=== PATIENT | female | born 1950 | race Caucasian/White ===

== ENCOUNTER 2016-05-18 14:33 | Outpatient (CLI) | payer OTHER ==
[2016-05-18 17:13] LABS: BASOPHILS # (AUTO) 0.1 K/uL (0-0.2); BASOPHILS % (AUTO) 0.7 % (0.0-3.0); EOSINOPHILS # (AUTO) 0.2 K/ul (0.0-0.7); EOSINOPHILS % (AUTO) 2.7 % (0.0-7.0); HEMATOCRIT 42.5 % (37.0-47.0); HEMOGLOBIN 14.2 g/dl (12.0-16.0); IMMATURE GRANULOCYTE % (AUTO) 0.3 % (0.0-5.0); LYMPHOCYTES # (AUTO) 2.3 K/uL (0.60-3.4); LYMPHOCYTES % (AUTO) 31.2 (10.0-50.0); MEAN CORPUSCULAR HEMOGLOBIN 33.9 pg (27.0-31.0); MEAN CORPUSCULAR HGB CONC 33.4 (31.8-35.4); MEAN CORPUSCULAR VOLUME 101.4 fl (81.0-99.0); MONOCYTES # (AUTO) 0.6 K/uL (0.4-2.0); MONOCYTES % (AUTO) 7.7 (0-10); NEUTROPHILS # (AUTO) 4.3 K/ul (2.0-6.9); NEUTROPHILS % (AUTO) 57.4; PLATELET COUNT 263 10^3/uL (140-440); RED BLOOD COUNT 4.19 10^6/ul (4.20-5.40)
[2016-05-18 17:51] LABS: ALBUMIN 3.7 g/dL (3.4-5.0); ALBUMIN/GLOBULIN RATIO 1.06; ANION GAP 18.4; BILIRUBIN,TOTAL 0.49 mg/dL (0.00-1.20); BUN/CREATININE RATIO 13.95; CALCIUM 9.2 mg/dL (8.2-10.2); CREATININE 0.86 mg/dL (0.60-1.30); POTASSIUM 4.4 mmol/L (3.5-5.10); TOTAL PROTEIN 7.2 g/dL (5.8-8.1)
== END 2016-05-18 14:34 | disposition home or self-care (01) ==
LOC: LAB 14:33
PROVIDERS: ATTEND General Practice
DX: E78.5 Hyperlipidemia, unspecified (principal); I10 Essential (primary) hypertension; E03.9 Hypothyroidism, unspecified; G47.33 Obstructive sleep apnea (adult) (pediatric); E53.9 Vitamin B deficiency, unspecified; R55 Syncope and collapse; F41.0 Panic disorder [episodic paroxysmal anxiety]; Z79.899 Other long term (current) drug therapy
CPT/HCPCS: 36415; 80053; 80061; 84443; 85025

== ENCOUNTER 2016-09-12 09:30 | Outpatient (CLI) | payer OTHER ==
[2016-09-12 09:56] LABS: BASOPHILS % (AUTO) 0.6 % (0.0-3.0); EOSINOPHILS # (AUTO) 0.2 K/ul (0.0-0.7); EOSINOPHILS % (AUTO) 2.5 % (0.0-7.0); HEMATOCRIT 40.2 % (37.0-47.0); HEMOGLOBIN 14.1 g/dl (12.0-16.0); IMMATURE GRANULOCYTE % (AUTO) 0.3 % (0.0-5.0); LYMPHOCYTES # (AUTO) 2.4 K/uL (0.60-3.4); MEAN CORPUSCULAR HEMOGLOBIN 33.7 pg (27.0-31.0); MEAN CORPUSCULAR HGB CONC 35.1 (31.8-35.4); MEAN CORPUSCULAR VOLUME 96.2 fl (81.0-99.0); MONOCYTES # (AUTO) 0.5 K/uL (0.4-2.0); MONOCYTES % (AUTO) 6.9 (0-10); NEUTROPHILS # (AUTO) 4.1 K/ul (2.0-6.9); NEUTROPHILS % (AUTO) 56.7; PLATELET COUNT 258 10^3/uL (140-440); RED BLOOD COUNT 4.18 10^6/ul (4.20-5.40); WHITE BLOOD COUNT 7.22 K/ul (4.6-10.2)
[2016-09-12 10:01] LABS: BILIRUBIN,URINE Negative (NEGATIVE); KETONES,URINE Negative (NEGATIVE); LEUKOCYTE ESTERASE ,URINE Negative (NEGATIVE); NITRITE,URINE Negative (NEGATIVE); PROTEIN,URINE Negative (NEGATIVE); URINE, BLOOD Negative (NEGATIVE)
[2016-09-12 10:10] LABS: ADD URINE MICROSCOPIC NO
[2016-09-12 10:14] LABS: ALBUMIN 3.6 g/dL (3.4-5.0); ALBUMIN/GLOBULIN RATIO 1.13; ANION GAP 10.9; BILIRUBIN,TOTAL 0.71 mg/dL (0.00-1.20); BUN/CREATININE RATIO 9.27; CALCIUM 9.1 mg/dL (8.2-10.2); CHOL/HDL RATIO 4.4 (4.5-5.5); CREATININE 0.97 mg/dL (0.60-1.30); POTASSIUM 3.9 mmol/L (3.5-5.10); TOTAL PROTEIN 6.8 g/dL (5.8-8.1)
--- NOTE | 2016-09-12 10:18 | CT ---
EXAM: CT of the chest without contrast History: Essential hypertension. Comparison: Chest CT 08/18/2015 Technique: Multiplanar CT images through the thorax were obtained without the administration of IV contrast Findings: Normal heart size. No pericardial effusion. The vessels are unremarkable. The pulmonar y arteries are not dilated. No pathologically enlarged thoracic lymph nodes. No consolidation. No pleural fluid and no pneumothorax. Stable 5 mm pleural based nodule within the right middle lobe. No developing lung nodules. A few small calcified granulomas again seen. Within the visualized upper abdomen, no acute findings. Colonic diverticulosis. No acute osseous ab normalities. Impression: 1. No acute intrathoracic process. 2. Colonic diverticulosis.
== END 2016-09-12 09:31 | disposition home or self-care (01) ==
LOC: RAD 09:30
PROVIDERS: ATTEND General Practice
DX: E78.5 Hyperlipidemia, unspecified (principal); I10 Essential (primary) hypertension; E03.9 Hypothyroidism, unspecified; R91.1 Solitary pulmonary nodule; Z79.899 Other long term (current) drug therapy
CPT/HCPCS: 36415; 80053; 80061; 81001; 85025

== ENCOUNTER 2016-09-30 20:08 | Outpatient (CLI) | END 2016-09-30 20:09 | disposition home or self-care (01) | LOC: AMBL 20:08 | PROVIDERS: ATTEND Internal Medicine Geriatric Medicine | DX: R55 Syncope and collapse (principal); R41.82 Altered mental status, unspecified; R53.1 Weakness; R40.2411 Glasgow coma scale score 13-15, in the field [EMT or ambulance]; R32 Unspecified urinary incontinence; I95.9 Hypotension, unspecified; R47.81 Slurred speech; H57.04 Mydriasis ==

== ENCOUNTER 2017-03-04 08:44 | Outpatient (CLI) ==
[2017-03-04 09:22] LABS: BASOPHILS # (AUTO) 0.1 K/uL (0-0.2); BASOPHILS % (AUTO) 0.6 % (0.0-3.0); EOSINOPHILS # (AUTO) 0.3 K/ul (0.0-0.7); HEMATOCRIT 40.9 % (37.0-47.0); IMMATURE GRANULOCYTE % (AUTO) 0.3 % (0.0-5.0); LYMPHOCYTES # (AUTO) 3.4 K/uL (0.60-3.4); LYMPHOCYTES % (AUTO) 37.4 (10.0-50.0); MEAN CORPUSCULAR HEMOGLOBIN 32.9 pg (27.0-31.0); MEAN CORPUSCULAR HGB CONC 34.2 (31.8-35.4); MONOCYTES # (AUTO) 0.7 K/uL (0.4-2.0); MONOCYTES % (AUTO) 7.3 (0-10); NEUTROPHILS # (AUTO) 4.6 K/ul (2.0-6.9); NEUTROPHILS % (AUTO) 51.4; PLATELET COUNT 272 10^3/uL (140-440); RED BLOOD COUNT 4.26 10^6/ul (4.20-5.40); WHITE BLOOD COUNT 8.95 K/ul (4.6-10.2)
[2017-03-04 09:32] LABS: BILIRUBIN,URINE Negative (NEGATIVE); KETONES,URINE Negative (NEGATIVE); LEUKOCYTE ESTERASE ,URINE Negative (NEGATIVE); NITRITE,URINE Negative (NEGATIVE); PROTEIN,URINE Negative (NEGATIVE); URINE, BLOOD Trace-intact (NEGATIVE)
[2017-03-04 09:38] LABS: ADD URINE MICROSCOPIC YES
[2017-03-04 09:44] LABS: ALBUMIN 3.5 g/dL (3.4-5.0); ALBUMIN/GLOBULIN RATIO 0.97; ANION GAP 10.5; BILIRUBIN,TOTAL 0.52 mg/dL (0.00-1.20); BUN/CREATININE RATIO 10.97; CALCIUM 9.6 mg/dL (8.2-10.2); CREATININE 0.82 mg/dL (0.60-1.30); POTASSIUM 4.5 mmol/L (3.5-5.10); TOTAL PROTEIN 7.1 g/dL (5.8-8.1)
== END 2017-03-04 08:45 | disposition home or self-care (01) ==
LOC: LAB 08:44
PROVIDERS: ATTEND General Practice
DX: E78.5 Hyperlipidemia, unspecified (principal); E03.9 Hypothyroidism, unspecified; I10 Essential (primary) hypertension; Z79.899 Other long term (current) drug therapy
CPT/HCPCS: 36415; 80053; 81001; 85025

== ENCOUNTER 2017-06-07 10:31 | Outpatient (CLI) | END 2017-06-07 10:32 | disposition home or self-care (01) | LOC: FCC-LAB 10:31 | PROVIDERS: ATTEND General Practice | DX: E78.5 Hyperlipidemia, unspecified (principal); I10 Essential (primary) hypertension; Z79.899 Other long term (current) drug therapy | CPT/HCPCS: 36415; 80053; 80061; 81001; 85025 ==

== ENCOUNTER 2017-06-19 11:04 | Outpatient (CLI) | END 2017-06-19 11:05 | disposition home or self-care (01) | LOC: RAD 11:04 | PROVIDERS: ATTEND General Practice | DX: Z12.31 Encounter for screening mammogram for malignant neoplasm of breast (principal) | CPT/HCPCS: 77067 ==

== ENCOUNTER 2017-09-11 16:13 | Outpatient (CLI) | payer OTHER ==
--- NOTE | 2017-09-11 17:00 | CT ---
EXAM: CT of the thoracic spine without contrast History: Thoracic back pain. Comparison: Chest CT 09/11 2017 Technique: Multiplanar CT images through the thoracic spine were obtained without the administration of IV contrast Findings: For details concerning the visualized thorax, please see dedicated chest CT done on the day. 6 mm hypoattenuating nodule within the right thyroid lobe. No acute fracture or subluxation of the thoracic spine. Mild to moderate disc space narrowing of the thoracic spine. A few prominent osteophytes. Partially visualized degenerative disc disease within the lower cervical spine which appears severe at C6-7. Bony spinal canal is not compromised. Impression: 1. No acute osseous abnormality of the thoracic spine. 2. Mild to moderate degenerative disc disease within the thoracic spine. 3. Severe degenerative disc disease within the lower cervical spine is partially visualized.
--- NOTE | 2017-09-11 17:03 | CT ---
EXAM: CT of the chest without contrast History: Chest pain and back pain. Comparison: Chest CT 09/12/2016, CT thoracic spine 09/11/2017 Technique: Multiplanar CT images through the thorax were obtained without the administration of IV c ontrast Findings: Heart size is normal. No pericardial effusion. No thoracic aortic aneurysm. No patholog ically enlarged thoracic lymph nodes. Calcified granulomas again seen within the thorax. No consoli dation. No pleural fluid and no pneumothorax. Mild diffuse bronchial wall thickening. No suspiciou s lung masses or lung nodules. Within the visualized upper abdomen, no acute findings. No acute osseous abnormalities. Impression: Mild diffuse bronchial wall thickening but no evidence for pneumonia.
--- NOTE | 2017-09-11 17:04 | DI ---
EXAM: Six views of the lumbar spine. History: Lower back pain. Comparison: Lumbar spine radiograph 06/22/2008 Findings: Dextroscoliosis of the lumbar spine. No acute fracture or subluxation. Moderate to sever e multilevel degenerative disc space narrowing with endplate sclerosis, osteophyte formation and vacu um disc phenomenon progressed compared to the prior study. Moderate to severe facet hypertrophy at m ultiple levels. Impression: 1. No acute osseous abnormality of the lumbar spine. 2. Progressive moderate to severe degenerative changes. 3. Dextroscoliosis
[2017-09-12 14:49] VITALS: BMI 24.5
== END 2017-09-11 16:14 | disposition home or self-care (01) ==
LOC: RAD 16:13
PROVIDERS: ATTEND General Practice
DX: M54.6 Pain in thoracic spine (principal); M54.5 Low back pain

== ENCOUNTER 2017-09-12 14:03 | Observation (INO) | payer OTHER ==
[2017-09-12 14:49] VITALS: BMI 24.5
[2017-09-12] MEDS: ALPRAZOLAM 0.5 MG PO SCH (20:06)
[2017-09-12] MEDS ORDERED: LOVENOX SUBCUT SCH (21:30)
[2017-09-12] MEDS ORDERED: LIDODERM PATCH 5% TP SCH (22:30)
[2017-09-12] MEDS ORDERED: ULTRAM PO STA (22:42)
[2017-09-12] MEDS ORDERED: TYLENOL PO STA (22:55)
[2017-09-13] MEDS: ALPRAZOLAM 0.5 MG PO SCH ×2 (08:16→21:25)
[2017-09-13] MEDS: KRILL OIL 500 MG PO SCH (08:17)
[2017-09-13] MEDS: NON-FORMULARY MEDICATION (Citalopram Hydrobromide [Celexa] 40 MG) PO SCH (08:17)
[2017-09-13] MEDS: NON-FORMULARY MEDICATION (Multivit With Calcium,Iron,Min [Women's Daily Formula] 1 EACH) PO SCH (08:17)
[2017-09-13] MEDS ORDERED: METOPROLOL TARTRATE 25 MG PO SCH ×2 (09:00→21:00)
[2017-09-13] MEDS ORDERED: ULTRAM PO STA ×2 (10:22→21:00)
--- NOTE | 2017-09-13 10:39 | NM ---
EXAM: Limited bone scan HISTORY: Back pain COMPARISON: Radiographs of the lumbar spine on 09/11/2017 showed moderate to severe degenerative [place] ges. TECHNIQUE: Patient was injected 26.2 mCi of technetium 99m HDP intravenously. Spot images of the [address], spine and pelvis were acquired in both anterior and posterior projections. FINDINGS: Lumbar dextroscoliosis is noted. Foci of increased isotope uptake are seen involving both right and left lateral aspect of the mid cervical spine, right AC joint, right sternoclavicular joint , cervical thoracic junction, left lateral aspect of the proximal as well as mid and distal lumbar sp ine compatible with degenerative changes. Right kidney appears normal. Left kidney is not seen. So ft tissues are unremarkable. IMPRESSION: 1. Lumbar dextroscoliosis. 2. Chronic degenerative changes as described. 3. 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
--- NOTE | 2017-09-13 13:43 | US ---
EXAM: Bilateral lower extremity venous Doppler History: Bilateral lower extremity pain and swelling. Technique: Multiple sonographic images through the bilateral lower extremities were obtained. Color duplex Doppler was used to interrogate vascular flow. Findings: The bilateral common femoral, greater saphenous, profunda, femoral, popliteal, peroneal, p osterior tibial and anterior tibial veins demonstrate spontaneous flow with normal compression and no rmal augmentation. Impression: No sonographic evidence for deep venous thrombosis.
[2017-09-13] MEDS ORDERED: D5%-1/2NS-KCL 20 MEQ/L IV SOL 1,000 ML IV SCH ×2 (17:00→17:30)
--- NOTE | 2017-09-13 20:59 | CT ---
EXAM: CT angiogram of the chest with contrast HISTORY: Elevated D-dimer TECHNIQUE: Helical imaging of the chest was performed following the intravenous administration of co ntrast. 3 mm thin axial images and coronal and sagittal MIP and MPR reconstructions and rotated 3-D reconstructions were provided for interpretation. Comparison 09/11/2017 CT scan of the chest. FINDINGS: No definite filling defects are identified within the branches of the pulmonary arteries. The central pulmonary arteries are normal. The heart is normal size. No mediastinal abnormalities a re seen. The lungs are clear. No lytic or blastic lesions are seen within the osseous structures. IMPRESSION: There is no acute pulmonary embolism. No acute abnormalities are seen within the thorax.
[2017-09-13] MEDS ORDERED: LOVENOX SUBCUT SCH (21:00)
[2017-09-13] MEDS ORDERED: LIDODERM PATCH 5% TP SCH (21:00)
[2017-09-14] MEDS: D5%-1/2NS-KCL 20 MEQ/L IV SOL 1,000 ML IV SCH ×2 (01:16→11:51)
[2017-09-14] MEDS: KRILL OIL 500 MG PO SCH (08:18)
[2017-09-14] MEDS: NON-FORMULARY MEDICATION (Multivit With Calcium,Iron,Min [Women's Daily Formula] 1 EACH) PO SCH (08:18)
[2017-09-14] MEDS: ALPRAZOLAM 0.5 MG PO SCH (08:18)
[2017-09-14] MEDS: NON-FORMULARY MEDICATION (Citalopram Hydrobromide [Celexa] 40 MG) PO SCH (08:18)
[2017-09-14 13:35] VITALS: BP 103/54; TEMP 97.6
--- NOTE | 2017-09-18 11:26 | CONS ---
DATE OF CONSULTATION: 09/13/17 REASON FOR CONSULTATION/HISTORY OF PRESENT ILLNESS: Severe back pain right sided paravertebral thoracic area going around localized. The patient has history of SVT or cardiac arrhythmia for which the patient had lead placement by Dr. Flanagan and now she is followed by Dr. Ryan every 6 monthly. She is on Beta gaby. The patient denies of any palpitation. The patient states she feel in December 2016 and has had intermittent thoracic back pain since. Approximately 3 days ago she began having constant pain in the right kidney area radiating across her back to the left side. She describes as "where I wear my bra." She says pain is an ache, sharp like a knife stabbing and right pressure. Pain rating is 8/10. She tells me she has a high pain tolerance. At times the pain is so severe she becomes nauseated. Dr. Serna evaluated and obtained CT T-spine, L-spine and chest. REVIEW OF SYSTEMS: CONSTITUTIONAL: No night sweats. No fatigue, malaise, lethargy. No fever or chills. HEENT: Eyes: No visual changes. No eye pain. No eye discharge. ENT: No sinus drainage. No epistaxis. No sinus pain. No sore throat. No odynophagia. No ear pain. No congestion. RESPIRATORY: No cough, no congestion. No hemoptysis. No shortness of breath. CARDIOVASCULAR: No angina symptoms. No CHF symptoms. No atypical chest pain for CAD. No palpitations. No orthopnea. GASTROINTESTINAL: No abdominal pain. No nausea or vomiting. No diarrhea or constipation. No hematemesis. No hematochezia. GENITOURINARY: No urgency. No frequency. No dysuria. No hematuria. No obstructive symptoms. No discharge. No pain. No significant abnormal bleeding. MUSCULOSKELETAL: No musculoskeletal pain. No joint swelling. Back pain. NEUROLOGICAL: No headache. No neck pain. No syncope. No seizures. No dizziness. PSYCHIATRIC: Not anxious. No depression. No suicidal thoughts. No homicidal thoughts. SKIN: No rash. No lesions. No wounds. ENDOCRINE: No unexplained weight loss. No weight gain. HEMATOLOGIC/LYMPHATIC: No anemia. No purpura. No petechiae. No prolonged or excessive bleeding. No palpable lymph nodes. MEDICATIONS: MVI with minerals Metoprolol Tartrate Krill oil Celexa Alprazolam PAST MEDICAL/SURGICAL HISTORY: Cardio loop implant-Dr. Ryan 2015 Panic attacks with heart palpitations. Peripheral neuropathy Sleep apnea (CPAP) Migraine headaches Bilateral cataract extractions Hysterectomy, 1999 Endometriosis 1997 Left knee scope, 2013 Bowel obstruction, 1977 Hernia repair Left nephrectomy 1975 SOCIAL HISTORY: Smoking; stopped in 2008 and no alcohol use. FAMILY HISTORY: Brother brain cancer Mother Hypertension, renal failure 2009 Father prostate cancer, migraine, mental issues and 1995 PHYSICAL EXAMINATION: VITAL SIGNS: Pulse 61, blood pressure 95/49, temperature 97.6 and pulse ox 96%. Weight 160. HEENT: Head normocephalic, atraumatic. Eyes: Extraocular muscles are intact. Pupils are equal, round and reactive to light and accommodation. Ears: No lesions. Nose appeared normal. Throat: No exudate or erythema. NECK: Supple. No JVD, no carotid bruit. No lymphadenopathy or thyromegaly. LUNGS: Clear to auscultation. Percussion note normal. Chest symmetrical. HEART: S1, S2, no S3. No murmurs. No cyanosis or clubbing. No ascites. Pulses: Dorsalis pedis and posterior tibial pulses +1 to +2 both sides. ABDOMEN: Soft. Nontender. Bowel sounds active. No CVA tenderness. No mass felt. EXTREMITIES: No edema. Full range of motion of all extremities, equal. NEUROLOGIC: No focal deficit. Cranial nerves II through XII are grossly intact. No headache, no double vision or headache. SKIN: Not dry. Intact. Turgor - normal. LYMPHATIC: No palpable lymph nodes/no lymphedema. MUSCULOSKELETAL: Normal joints with no swelling. Muscle tone is normal. LABS: WBC 6.81, hgb 12.7, hct 36.2, plt count 216. Sodium 142, potassium 3.7, chloride 107, bicarb 27, BUN 8, creatinine 0.79 and glucose 85. D-dimer 847.86 then 834.10, cardiac markers x1 within normal limites, U/A negative. ESR 7, EKG #1 sinus bradycardia rate 58, #2 sinus rhythm possible left atrial enlargement nonspecific ST-T wave AB. Bone scan 09/13/17 lumbar dextroscoliosis, chronic degenerative change and absent right kidney-post surgical. ASSESSMENT: 1. Thoracic area paravertebral right sided pain across with history of cardiac arrhythmias. 2. History of chronic kidney disease, has right kidney followed by Dr. Li 3. History of cardiac arrhythmia Dr. Ryan 4. Sleep apnea on CPAP 5. Depression RECOMMENDATIONS: 1. Will do echocardiogram, don't think that patient needs any stress echo because the pain seems to be entirely musculoskeletal 2. Evaluate LV function 3. Pain seems to be musculoskeletal 4. Telemetry routine 5. EKG 6. CVS/ chest pain non cardiac CONDITION: Stable. Thanks for referral. STEFAN
--- NOTE | 2017-09-19 14:28 | PN ---
DISCUSSION WITH DR. TIFFANY GAN 09/13/17 RE: Ani Fitzpatrick I had talked to Ani Fitzpatrick with regards to me talking to Dr. Gan and she was okay with that. She had been to Dr. Gan two days ago. She wanted to touch base with Dr. Gan today and advise Ms. Fitzpatrick is in the hospital. She had been complaining of pain in the lower thoracic area, more on the right traversing to the left side. The pain seemed to have started after the fall in December of 2016. The incident happened just before leaving for vacation and the patient and her left for vacation with another family. She claims to have had pain throughout the course of the vacation. She has pain off and on and there might be a day that she does not have any. When I talked to her yesterday, she was crying all of the time that I was examining and talking to her in the office. Dr. Gan had informed me about the times that he had seen them. It is more or less a counselling for their relationship. I did inform Dr. Gan that I felt that her mind was running 100 miles an hour and that maybe antipsychotic medication such as Seroquel, which might help her sleep and may help the problem. He seemed to agree with that. I felt that he will be looking about seeing them again, maybe in about two weeks. I would not institute this Seroquel until after I have done the chest CT. I am waiting for the call from Dr. Li. STEFAN
--- NOTE | 2017-09-19 14:35 | PN ---
CONVERSATION NOTE WITH THE NURSE PRACTITIONER FROM DR. EMERSON DATE: 09/13/17 RE: ANI BEARDEN I did inform her that Ms. Ani Bearden is in the hospital and she is following with Dr. Emerson with her kidney. Her kidney status is normal. The GFR is between 70 to 78 and she has only one kidney on the right, the left had been removed. I did inform the nurse practitioner that the patient had the chest pain and the D-Dimer is between 500 to 1,834 and that I may need to do a CTA of the lung. I told her that she has no allergies to Iodine. She felt that there should be no problems. I did tell her that the patient was concerned since she only had one kidney. The patient will be hydrated before the CTA and during and after. Her BUN today is 8, creatinine 0.79 and E GFR 73. D-Dimer 834.10. Doppler studies of both lower extremities were negative for DVT. The bone scan shows degenerative diseases in the bones. No indication of a fracture or any malignancy. MTDD
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
--- NOTE | 2017-10-04 14:50 | DS ---
DATE OF SERVICE: 09/14/17 PATIENT IDENTIFICATION: 67 year old female admitted to the hospital because of pain in the right midthoracic area posterior radiating to the left side. This has been intermittent since December 2016. She claimed that it began after her fall to the floor. Pain is claimed to be sudden in onset and sharp. Intensity had increased over time and the patient at the office on the day of admission was crying continuously during the history and physicals. HOSPITAL COURSE: The patient was advised admission to the hospital for further workup. The patient on admission had the followup vital signs; temperature 97.7, pulse 68, blood pressure 126/79 left 133/73 right, respiratory rate 16, oxygen saturation 99% on room air. She is 5'8 inches and 160 pounds and 14 ounces. The patient remained afebrile throughout her hospital stay. The blood pressure did elevate at time but not very significantly elevated. The highest recorded blood pressure 145/68 and the lowest recorded blood pressure was 88/50. The patient did not have any symptoms with these changes in blood pressure or fluctuations of blood pressure. The patient's labs consisted of CBC showing lower RBC 3.86, hct 36.2, normal WBC and plt count. D-Dimer 834, Troponin was normal, Sed rate and C-Reactive Protein normal. Urinalysis normal. CT chest done showing no pulmonary emboli and dissections of the thoracic blood vessels. Venous Doppler lower extremities were negative for venous thrombosis, full body scan showed absent left kidney and degenerative changes but no acute fractures for any malignancy. Cardiology consultation was pursued and the patient was seen by Dr. Hills our local doffer. Recommended an echocardiogram which he would do. The patient was given Ultram 25mg PO and did help with the pain. Lidocaine patch also was applied 5% to the area of pain. Did explain to the patient that the CT scan of the chest does not show any blood clot in the lung and does not show any dissection of the blood vessels. That might be the reason for the pain more so when she had pain upon taking a deep breath from time to time. Equine Intern also does not think that the pain is cardiac in origin. The patient was alert, ambulatory with movement of all extremities and cheerful.She is eager to go home. The patient during this admission also was given Lovenox 40mg SUBCUT daily and was continued on her home medications. At the time of discharge the patient was advised to resume her previous medications. The patient is to see me the following Saturday. Rx Lidoderm Patch 5% to applied 12 hours after 24 everyday. No refill was given. FINAL DIAGNOSES: 1. Midthoracic posterior pain etiology undetermined, improved 2. CTA chest negative for pulmonary emboli and blood vessel dissection 3. Degenerative bone disease, multiple areas by bone scan 4. History of weight loss 30 pounds 5. History of sleep apnea on CPAP 6. History of Depression 7. History of alcohol use and abuse, stopped about a year ago 8. History of chronic tobacco use and abuse, stopped for more than a year MTDD
== END 2017-09-14 16:05 | disposition home or self-care (01) ==
LOC: INTOOBSV 14:03 → MEDSURG B 14:03
PROVIDERS: ADMIT General Practice; ATTEND General Practice
DX: M54.6 Pain in thoracic spine (principal); F41.8 Other specified anxiety disorders; F43.10 Post-traumatic stress disorder, unspecified; M89.8X0 Other specified disorders of bone, multiple sites; R63.4 Abnormal weight loss; G47.30 Sleep apnea, unspecified; Z68.24 Body mass index [BMI] 24.0-24.9, adult
CPT/HCPCS: 36415; 80053; 81001; 83735; 84484; 85025; 85379; 85651; 86140; 93005; 93010; 96360; 96361; 96372; 99217; 99220; 99224; 99226

== ENCOUNTER 2017-10-18 11:21 | Outpatient (CLI) | END 2017-10-18 11:22 | disposition home or self-care (01) | LOC: FCC-LAB 11:21 | PROVIDERS: ATTEND General Practice | DX: E78.5 Hyperlipidemia, unspecified (principal); I10 Essential (primary) hypertension; E03.9 Hypothyroidism, unspecified; E53.9 Vitamin B deficiency, unspecified; Z79.899 Other long term (current) drug therapy | CPT/HCPCS: 36415; 80053; 80061; 84443; 85025 ==

== ENCOUNTER 2017-11-01 10:54 | Outpatient (CLI) ==
--- NOTE | 2017-11-01 12:33 | CT ---
EXAM: CT head without contrast HISTORY: Gait disturbance with repeated falls and trauma COMPARISON: CT head from 11/11/2014 TECHNIQUE: Helical axial CT of the head was performed without contrast. Coronal and sagittal reconstr uctions were performed. FINDINGS: There is no acute intracranial abnormality. There is no hemorrhage, mass, midline shift, abnormal ex tra-axial fluid collection, hydrocephalus or evolving ischemia. The randle-white matter junction is wel l maintained. Brain parenchyma, ventricles and sulci are normal. There are no acute calvarial lesions. Visualized orbits and globes are unremarkable. The mastoid ai r cells demonstrate no significant soft tissue opacification. The visualized paranasal sinuses show n o air-fluid levels. IMPRESSION: Negative head CT as described.
== END 2017-11-01 10:55 | disposition home or self-care (01) ==
LOC: RAD 10:54
PROVIDERS: ATTEND General Practice
DX: R29.6 Repeated falls (principal); R51 Headache

== ENCOUNTER 2017-11-06 12:43 | Outpatient (CLI) | END 2017-11-06 12:44 | disposition home or self-care (01) | LOC: CAR 12:43 | PROVIDERS: ATTEND General Practice | DX: R29.6 Repeated falls (principal); R55 Syncope and collapse | CPT/HCPCS: 93227 ==

== ENCOUNTER 2018-04-18 09:52 | Outpatient (CLI) | END 2018-04-18 09:53 | disposition home or self-care (01) | LOC: LAB 09:52 | PROVIDERS: ATTEND General Practice | DX: E78.5 Hyperlipidemia, unspecified (principal); I10 Essential (primary) hypertension; R51 Headache; E03.9 Hypothyroidism, unspecified; Z79.899 Other long term (current) drug therapy | CPT/HCPCS: 36415; 80053; 80061; 81001; 84443; 85025; 87086 ==

== ENCOUNTER 2018-06-23 13:41 | Outpatient (CLI) | payer OTHER ==
--- NOTE | 2018-06-25 11:06 | MAMMO ---
EXAM: Digital screening mammogram with tomosynthesis HISTORY: Screening COMPARISON: 06/19/2017 FINDINGS: Digital MLO and CC views of the right and left breast were performed. Tomosynthesis was performed. Computer aided detection utilized. There are scattered fibroglandular densities. Benign calcification in the left breast. Electronic density left breast region medially. There is no evid ence for mass, asymmetry, distortion, or suspicious calcifications in either breast. IMPRESSION: 1. No evidence of malignancy in the right or left breast. 2. Annual screening mammogram is recommended in one year. BIRADS category 2, benign
== END 2018-06-23 13:42 | disposition home or self-care (01) ==
LOC: RAD 13:41
PROVIDERS: ATTEND General Practice
DX: Z12.31 Encounter for screening mammogram for malignant neoplasm of breast (principal)